=== PATIENT | female | born 1945 | race Two or more races ===

== ENCOUNTER 2017-09-26 13:02 | Outpatient (CLI) | payer OTHER | END 2017-09-26 13:07 | disposition home or self-care (01) | LOC: MAMO-SONO 13:02 | DX: Z12.31 Encounter for screening mammogram for malignant neoplasm of breast (principal); N64.89 Other specified disorders of breast; N61.0 Mastitis without abscess ==

== ENCOUNTER 2017-11-16 12:28 | Outpatient (CLI) | payer OTHER | END 2017-11-16 12:47 | disposition home or self-care (01) | LOC: SONOGRAMA 12:28 | DX: E04.1 Nontoxic single thyroid nodule (principal) ==

== ENCOUNTER 2018-03-18 10:52 | Outpatient (CLI) | payer OTHER | END 2018-03-18 10:59 | disposition home or self-care (01) | LOC: SONOGRAMA 10:52 | DX: E04.8 Other specified nontoxic goiter (principal) ==

== ENCOUNTER 2018-11-20 09:03 | Outpatient (CLI) | payer OTHER | END 2018-11-20 09:12 | disposition home or self-care (01) | LOC: MAMO-SONO 09:03 | DX: N60.11 Diffuse cystic mastopathy of right breast (principal); N60.12 Diffuse cystic mastopathy of left breast; Z12.31 Encounter for screening mammogram for malignant neoplasm of breast; Z87.898 Personal history of other specified conditions ==

== ENCOUNTER 2018-11-21 13:41 | Outpatient (CLI) | payer OTHER | END 2018-11-21 14:03 | disposition home or self-care (01) | LOC: NUCLEAR 13:41 | DX: M81.0 Age-related osteoporosis without current pathological fracture (principal) ==

== ENCOUNTER → 2020-01-06 | Outpatient (CLI) | payer OTHER | END | disposition home or self-care (01) | LOC: MAMO-SONO 14:15 → SONOGRAMA 14:27 | PROVIDERS: ATTEND Internal Medicine Endocrinology, Diabetes & Metabolism | DX: E04.8 Other specified nontoxic goiter (principal) ==

== ENCOUNTER 2020-02-09 13:22 | Outpatient (CLI) | payer OTHER | END 2020-02-09 13:48 | disposition home or self-care (01) | LOC: MAMO-SONO 13:22 | PROVIDERS: ATTEND Specialist | DX: Z12.31 Encounter for screening mammogram for malignant neoplasm of breast (principal); N60.11 Diffuse cystic mastopathy of right breast; N60.12 Diffuse cystic mastopathy of left breast ==

== ENCOUNTER 2021-03-08 13:12 | Outpatient (CLI) | payer OTHER | END 2021-03-08 13:16 | disposition home or self-care (01) | LOC: MAMO-SONO 13:12 | PROVIDERS: ATTEND Specialist | DX: N60.11 Diffuse cystic mastopathy of right breast (principal); N60.12 Diffuse cystic mastopathy of left breast; E04.2 Nontoxic multinodular goiter ==

== ENCOUNTER 2022-08-17 14:03 | Outpatient (CLI) | payer OTHER | END 2022-08-17 14:19 | disposition home or self-care (01) | LOC: MAMO-SONO 14:03 | PROVIDERS: ATTEND Specialist | DX: N60.11 Diffuse cystic mastopathy of right breast (principal); N60.12 Diffuse cystic mastopathy of left breast ==

== ENCOUNTER 2022-08-30 13:07 | Outpatient (CLI) | payer OTHER | END 2022-08-30 13:09 | disposition home or self-care (01) | LOC: NUCLEAR 13:07 | PROVIDERS: ATTEND Specialist | DX: M81.0 Age-related osteoporosis without current pathological fracture (principal) ==

== ENCOUNTER 2023-02-13 14:30 | Outpatient (CLI) | payer OTHER | END 2023-02-13 14:38 | disposition home or self-care (01) | LOC: SONOGRAMA 14:30 | PROVIDERS: ATTEND Internal Medicine Endocrinology, Diabetes & Metabolism | DX: E04.8 Other specified nontoxic goiter (principal) ==

== ENCOUNTER 2023-04-26 11:23 | Outpatient (CLI) | payer OTHER | END 2023-04-26 11:37 | disposition home or self-care (01) | LOC: SONOGRAMA 11:23 | PROVIDERS: ATTEND Pathology Anatomic Pathology & Clinical Pathology | DX: D44.0 Neoplasm of uncertain behavior of thyroid gland (principal); D34 Benign neoplasm of thyroid gland; E07.89 Other specified disorders of thyroid; E04.8 Other specified nontoxic goiter ==

== ENCOUNTER 2023-12-25 14:09 | Outpatient (CLI) | payer OTHER | END 2023-12-25 14:21 | disposition home or self-care (01) | LOC: MAMO-SONO 14:09 | PROVIDERS: ATTEND Specialist | DX: N60.11 Diffuse cystic mastopathy of right breast (principal); N60.12 Diffuse cystic mastopathy of left breast ==

== ENCOUNTER 2024-01-03 09:27 | Outpatient (CLI) | payer OTHER | END 2024-01-03 09:34 | disposition home or self-care (01) | LOC: SONOGRAMA 09:27 | PROVIDERS: ATTEND Pathology Anatomic Pathology & Clinical Pathology | DX: D44.0 Neoplasm of uncertain behavior of thyroid gland (principal); E04.8 Other specified nontoxic goiter ==

== ENCOUNTER 2024-01-10 13:03 | Outpatient (CLI) | payer OTHER | END 2024-01-10 13:05 | disposition home or self-care (01) | LOC: SONOGRAMA 13:03 | PROVIDERS: ATTEND Pathology Anatomic Pathology | DX: D44.0 Neoplasm of uncertain behavior of thyroid gland (principal); E04.8 Other specified nontoxic goiter ==

== ENCOUNTER 2025-02-04 12:57 | Outpatient (CLI) | payer OTHER | END 2025-02-04 13:08 | disposition home or self-care (01) | LOC: MAMO-SONO 12:57 | PROVIDERS: ATTEND Specialist | DX: N60.11 Diffuse cystic mastopathy of right breast (principal); N60.12 Diffuse cystic mastopathy of left breast ==

== ENCOUNTER 2025-02-12 12:38 | Outpatient (CLI) | payer OTHER | END 2025-02-12 12:39 | disposition home or self-care (01) | LOC: NUCLEAR 12:38 | PROVIDERS: ATTEND Specialist | DX: M81.0 Age-related osteoporosis without current pathological fracture (principal) ==